=== PATIENT | male | born 1975 | race Caucasian/White ===

== ENCOUNTER 2016-11-24 15:02 | Emergency (ER) | payer OTHER ==
[~2016-11-24] VITALS: Ht 177.8 cm; Wt 115.7 kg
[2016-11-24 15:10] VITALS: BP 145/86
--- NOTE | 2016-11-24 17:08 | ED EYE COMPLAINT ---
History of Present Illness General Chief Complaint: Eye Problems Stated Complaint: FOREIGN BODY STUCK IN L EYE Source: patient Exam Limitations: no limitations Vital Signs & Intake/Output Vital Signs & Intake/Output Vital Signs Date Time Temp Pulse Resp B/P B/P Pulse O2 O2 Flow FiO2 Mean Ox Delivery Rate 11/24 1510 97.5 99 16 145/86 97 Room Air Allergies Coded Allergies: No Known Allergies (11/24/16) Reconcile Medications No Known Home Medications Triage Note: PT STTES HE HAS SOMTHING STUCK IN HIS LEFT EYE. PT STATES HE THINKS ITS A PIECE OF STEEL. PT STATES HE WENT TO THE CLINIC YESTERDAY AND THEY DIDN'T DO ANYTHING FOR HIM. Triage Nurses Notes Reviewed? yes Onset: Gradual Duration: day(s): Timing: recent history Injury Environment: work Severity: moderate Left Eye Associated Symptoms: discomfort, redness, photophobia HPI: 40-year-old male presents to emergency department complaining of foreign body sensation in left eye 3 days. 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 He got all of his out however his symptoms have gradually increased over the past 3 days. He is complaining of left eye pain, sensitivity to bright light, redness, tearing. He has had metal foreign bodies in his eye before that required drilling. He was seen at the clinic yesterday and for seen staining did not show foreign body at that time. He was given erythromycin ointment applied topically to his eye 5 times a day. The patient states he feels as if something is still in his eye and when he looks he can see a speck on his cornea. He denies visual changes, flashing lights, floaters, head trauma, use of contact lenses use of contact lenses. The patient is here in [place] traveling for work, he states that that this is not workman's comp. (FIORELLA RECIO,KHALIDA NEWELL) Past History Travel History Traveled to [place] past 21 day No Medical History Any Pertinent Medical History? see below for history EENT: corneal abrasion, foreign body Surgical History Surgical History: non-contributory Psychosocial History What is your primary language Croatian Tobacco Use: Never used ETOH Use: denies use Illicit Drug Use: denies illicit drug use Family History Hx Contributory? No (FIORELLA RECIO,KHALIDA NEWELL) Review of Systems Review of Systems Constitutional: Reports: no symptoms. Eyes: Reports: see HPI. Ear: Reports: no symptoms. Nose: Reports: no symptoms. Mouth: Reports: no symptoms. Throat: Reports: no symptoms. Respiratory: Reports: no symptoms. Cardiovascular: Reports: no symptoms. GI: Reports: no symptoms. Genitourinary: Reports: no symptoms. Musculoskeletal: Reports: no symptoms. Skin: Reports: no symptoms. Neurological/Psychological: Reports: no symptoms. Hematologic/Endocrine: Reports: no symptoms. Immunologic/Allergic: Reports: no symptoms. All Other Systems: Reviewed and Negative (KHALIDA BARROS PA-C) Physical Exam General Appearance: well developed/nourished, no apparent distress, alert, awake General Inspection: normal inspection Eyelid: normal inspection Conjunctiva/Sclera: injected Cornea: foreign body (1mm brown foreign body 5oclock), no apparent rust ring EOM: intact Pupil: normal accommodation, normal pupil, PERRL Eye Left 1) General Inspection: normal inspection Eyelid: normal inspection Conjunctiva/Sclera: normal inspection Cornea: normal inspection EOM: intact Pupil: normal accommodation, normal pupil, PERRL Physical Exam Head: atraumatic, normal appearance Nose: normal inspection Mouth/Throat: normal mouth inspection Neck: normal inspection, supple, full range of motion Cardiovascular/Respiratory: no respiratory distress Neurologic/Psych: awake, alert, oriented x 3 Skin: intact, normal color, warm/dry (KHALIDA BARROS PA-C) Progress Differential Diagnosis: corneal abrasion, corneal foreign body, conjunctivitis, glaucoma Plan of Care: Current Medications Sig/Phillip Start time Last Medication Dose Stop Time Status Admin Tetanus/Diphtheria 0.5 ML ONCE ONE 11/24 1714 [facility] Toxoids Adsorbed 11/25 1715 ([facility]) The patient was discussed with Dr. Rebolledo. Small metallic foreign body observed in left eye at about 5:00. Left eye was numbed using tetracaine. Sterile cotton swab used to attempt removal of foreign body, unsuccessful. 16-gauge needle used to swipe metalic foreign body from the cornea, it appears as though fragment remains in left eye. The patient is currently on erythromycin ointment for corneal abrasion, he has had previous corneal abrasions in ointment as the treatment of choice rather than drops. He is not a contact lens user. Patient was told that he still had remaining foreign body in his left eye, he will follow up with house builder tomorrow, he will continue to take his antibiotic ointment. The patient is in agreement with the plan of care.. (FIORELLA RECIO,KHALIDA NEWELL) Departure Departure Disposition: HOME OR SELF CARE Condition: Stable Clinical Impression Primary Impression: Foreign body in eye Referrals: PATIENT HAS NO PRIMARY CARE DR (PCP/Family) KOFI CARVALHO,JAMESON WALKER MD,LONNY Durand Additional Instructions: Apply antibiotic ointment 4 times a day as prescribed by the doctor you saw yesterday. Follow-up with eye doctor referral given to you today, call to make an appointment for today or tomorrow. Monitor your vision for signs of changes. Return if any worsening symptoms or concerns. Take Tylenol or Motrin as prescribed as needed for pain. Departure Forms: Customer Survey General Discharge Information Prescriptions: Current Visit Scripts No Known Home Medications (FIORELLA RECIO,KHALIDA NEWELL) PA/MARBLE CUTTER Co-Sign Statement Statement: ED Attending supervision documentation- I saw and evaluated the patient. I have also reviewed all the pertinent lab results and diagnostic results. I agree with the findings and the plan of care as documented in the PA's/MARBLE CUTTER's documentation. x I have reviewed the ED Record and agree with the PA's/MARBLE CUTTER's documentation. [] Additions or exceptions (if any) to the PAs/MARBLE CUTTER's note and plan are summarized below: [] (MINA CARVALHO,YOANA)
== END 2016-11-24 17:24 ==
LOC: ERH 15:02
DX: T15.92XA Foreign body on external eye, part unspecified, left eye, initial encounter (principal)
CPT/HCPCS: 90471; 90714